=== PATIENT | male | born 1945 | race Caucasian/White ===

== ENCOUNTER 2018-07-08 11:39 | Inpatient (IN) | payer OTHER ==
[~2018-07-08] VITALS: Ht 177.8 cm; Wt 80.0 kg
--- NOTE | ~2018-07-08 | HC ---
[facility] [place] [address] [place] [address] CONSULTATION Name: TOMMY ROOT Room #: 359-P ADM IN M.R.#: [id number] Admission: 07/08/18 Attend Phys: Jim Harris MD Discharge: Date of : 43 Report #: [id number] THIS REPORT FOR: //name// CC: Anjum Harris DATE OF SERVICE: 07/10/2018 HISTORY OF PRESENT ILLNESS: The patient is a 72-year-old white male admitted with some right hand numbness and right leg numbness and weakness. He notes that the right leg weakness has resolved. He still has a little bit of right hand numbness, but the weakness has pretty much resolved as well. CTA showed a perfusion defect to left temporal area and he is noted to have some left carotid stenosis. MRI showed numerous small left cerebral hemisphere cortical area abnormal signals consistent with subacute ischemia and infarct. They were noted to be primarily in the middle cerebral artery distribution, but there were some in the posterior cerebral artery distribution on the left as well. He was seen by Vascular Surgery and with moderate 60-70% carotid stenosis. Further evaluation is underway in this regard. He does have some hypertension and he is currently allowed permissive hypertension. He has hyperlipidemia. We are seeing him in rehabilitation medicine consultation. PAST MEDICAL HISTORY: Includes a history of appendectomy. He has had a right shoulder repair and history of tobacco abuse. HABITS: Current everyday smoker, smokes cigars. No history of alcohol abuse. ALLERGIES: No known drug allergies. SOCIAL HISTORY: He lives with friends/roommates in a split level house. He did not utilize any assistive device premorbidly, drives. 7 steps in. REVIEW OF SYSTEMS: No current complaints of chest pain, shortness of breath, or abdominal discomfort. Again, he notes that the numbness has improved and the weakness has resolved. He has denied any chest pain, shortness of breath, nausea, vomiting, constipation or diarrhea. PHYSICAL EXAMINATION: GENERAL: He is a pleasant 72-year-old, bearded, white male in no obvious distress. He is alert. VITAL SIGNS: Last recorded temperature 97.6, pulse 68, respirations 18, blood pressure 124/80. HEENT: Appears to be benign. NEUROMUSCULOSKELETAL: Cranial nerves grossly intact. Facies are symmetric. Functional range of motion of both upper extremities with strength grade 4+/5, DTRs are 1. Lower extremity reveals full strength without focal weakness. [facility] [address] [place] [address] CONSULTATION Name: TOMMY ROOT Room #: 359-P [facility] IN M.R.#: [id number] Admission: 07/08/18 Attend Phys: Jim Harris MD Discharge: Date of : 44 Report #: [id number] is intact. He might have some slight residual weakness of the right upper extremity. He does quite well with sit to stand transfers. He appears to have good balance with short distance ambulation. Occupational Therapy has evaluated him and does not feel that he warrants any further occupational therapy and they did give him TheraBand. ASSESSMENT: A 72-year-old white male with the following problem list: 1. 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 2. Left carotid stenosis. 3. Previous weakness of the right upper and right lower extremity with resolution of the right lower extremity weakness and only slight residual weakness of the right upper extremity. 4. Hypertension. PLAN: He has already been discharged from Occupational Therapy and they gave him a TheraBand to work on strengthening exercises. He appears to have good standing balance and excellent lower extremity strength. Physical therapy is to evaluate. He appears too high level to warrant an acute in-hospital inpatient rehabilitation stay. We would anticipate that he should be able to return directly home as he further medically stabilizes. Occupational therapy is currently in the process of giving him a home exercise program. Thank you for asking us to assist in this patient's care. By: [id number] Mohinder Guerrero MD /nt
[2018-07-08 11:42] VITALS: BP 143/92
[2018-07-08 12:41] LABS: HEMATOCRIT 45.4 % (42.0-52.0); HEMOGLOBIN 15.8 gm/dL (14.0-18.0); MCH 30.9 pg (26.0-34.0); MCHC 34.7 g/dL (28.0-37.0); MCV 89.1 fL (80.0-100.0); RBC 5.1 mil/uL (4.50-6.00); RDW 13.2 % (10.5-14.5); WBC 5.7 thou/uL (4.0-11.0)
[2018-07-08 12:46] LABS: ANION GAP 8 mmol/L (7-16); BUN 21 mg/dL (7-18); CALCIUM 9.3 mg/dL (8.5-10.1); CHLORIDE 104 mmol/L (98-107); CO2 27 mmol/L (21-32); CREATININE 1.2 mg/dL (0.7-1.3); GLUCOSE 99 mg/dL (74-106); SODIUM 139 mmol/L (136-145)
[2018-07-08 12:55] LABS: ALBUMIN 3.8 g/dL (3.4-5.0); SGOT 17 U/L (15-37); SGPT 34 U/L (30-65); TOTAL BILIRUBIN 0.5 mg/dL (<0.1-1.0); TOTAL PROTEIN 7.1 g/dL (6.4-8.2); TROPONIN-I <0.06 ng/mL (<0.06)
[2018-07-08 13:41] LABS: CHOLESTEROL 199 mg/dL (<200); HDL CHOLESTEROL 41 mg/dL (>40); LDL CHOLESTEROL 132 mg/dL (<100); TC:HDL 4.9 Ratio (Not establshd); TRIGLYCERIDE 131 mg/dL (<150); VLDL 26 mg/dL (<40)
[2018-07-08 13:45] LABS: SERUM ASSESSMENT Clear
[2018-07-08 14:06] LABS: TSH 1.584 uIU/mL (0.358-3.740)
[2018-07-08 14:14] VITALS: BP 168/86
--- NOTE | 2018-07-08 14:36 | NUR ---
HANDOFF FAXED; THIS RN FOUND ROOM ASSIGNMENT ON WARRANT CLERK DESK AT 1167
[2018-07-08 14:42] VITALS: BP 133/74
--- NOTE | 2018-07-08 15:16 | NUR ---
ECHO FINISHED; PT TO ROOM NOW
[2018-07-08 17:56] VITALS: BP 140/84
[2018-07-08 20:00] VITALS: BP 128/72
--- NOTE | 2018-07-08 20:29 | NUR ---
Assumed care of pt at 1900. Pt alert and oriented x4. No c/o pain. IVF started and hs meds administered. Pt will be transferred to , room 359. Will give report to Miky LA.
--- NOTE | 2018-07-08 23:33 | NUR ---
NURSE ASSUMED CARE OF PATIENT AT APPROXIMATELY 2130 THIS SHIFT. PATIENT WAS TRANSFERRED FROM WITHOUT INCIDENT. NURSE TO PROVIDE FREQUENT ASSESSMENT.
[2018-07-08 23:45] VITALS: BP 127/79
[2018-07-09 03:35] VITALS: BP 118/57
[2018-07-09 05:32] LABS: HEMATOCRIT 40.6 % (42.0-52.0); HEMOGLOBIN 14.1 gm/dL (14.0-18.0); MCH 30.3 pg (26.0-34.0); MCHC 34.8 g/dL (28.0-37.0); MCV 87.1 fL (80.0-100.0); RBC 4.65 mil/uL (4.50-6.00); RDW 12.8 % (10.5-14.5); WBC 5.7 thou/uL (4.0-11.0)
[2018-07-09 05:47] LABS: CALCIUM 8.6 mg/dL (8.5-10.1); CREATININE 1.2 mg/dL (0.7-1.3); MAGNESIUM 2.1 mg/dL (1.8-2.4); POTASSIUM 4.1 mmol/L (3.5-5.1)
--- NOTE | 2018-07-09 06:10 | NUR ---
PATIENT IS PROGRESSING IN HIS CARE PLAN. VITAL SIGNS STABLE WITH PATIENT HAVING NO COMPLAINTS OF PAIN OR NAUSEA. FULLY ORIENTED, PATIENT WAS ABLE TO CALL APPROPRIATELY AND PARTICIPATE IN CARE. SLIGHT NUMBNESS REPORTED IN RIGHT ARM WITH NO REPORTS OF NUMBNESS TO LEGS. UP MULTIPLE TIMES TO BATHROOM WITH STANDBY ASSISTANCE INCIDENT FREE. PATIENT IS ANXIOUS TO GET MRI AND DISCHARGE SOON POSSIBLE. CONTINUE PLAN OF CARE.
[2018-07-09 08:19] VITALS: BP 145/98
--- NOTE | 2018-07-09 11:27 | 2DMMODE ---
[facility] [address] [place] [address] 2 D/M-MODE ECHOCARDIOGRAM Name: TOMMY ROOT Room #: 359-P ADM IN M.R.#: [id number] Admission: 07/08/18 Attend Phys: Jim Harris, Discharge: Date of : 43 Date of Service: 07/09/18 1127 Report #: [id number] THIS REPORT FOR: //name// APPROVED REPORT Study performed: 07/08/2018 14:44:55 EXAM: Comprehensive 2D, Doppler, and color-flow Echocardiogram Patient Location: In-Patient Room #: ER 7 Status: routine BSA: 1.97 HR: 67 bpm BP: 143/92 mmHg Other Information Study Quality: Good Indications CVA/TIA HTN, HLD, smoker 2D Dimensions IVSd: 13.02 (7-11mm) LVOT Diam: 22.31 (18-24mm) LVDd: 46.06 mm PWd: 10.00 (7-11mm) Ascending Ao: 26.72 (22-36mm) LVDs: 26.01 (25-40mm) Left Atrium: 33.58 (27-40mm) Aortic Root: 29.83 mm IVC: 18.00 mm Aortic Valve AoV Peak Guille.: 1.14 m/s AO Peak Gr.: 5.51 mmHg LVOT Max P.23 mmHg LVOT Max V: 1.03 m/s QUINN Vmax: 3.52 cm2 Mitral Valve E/A Ratio: 0.9 MV Decel. Time: 218.61 ms MV E Max Guille.: 0.71 m/s MV A Guille.: 0.77 m/s MV PHT: 63.40 ms Pulmonary Valve PV Peak Guille.: 1.15 m/s PV Peak Gr.: 5.32 mmHg [facility] [place] [address] [place] [address] 2 D/M-MODE ECHOCARDIOGRAM Name: IVETTTOMMY Room #: 359-P ADM IN M.R.#: [id number] Admission: 07/08/18 Attend Phys: Jim Harris, Discharge: Date of : 43 Date of Service: 07/09/18 1127 Report #: [id number] Pulmonary Vein P Vein S: 0.59 m/s P Vein A: 0.35 m/s P Vein D: 0.38 m/s P Vein A Dur.: 117.6 msec P Vein S/D Ratio: 1.55 Tricuspid Valve TR Peak Guille.: 2.67 m/s RAP Estimate: 3.00 mmHg TR Peak Gr.: 28.48 mmHg PA Pressure: 31.00 mmHg Left Ventricle The left ventricle is normal size. There is normal LV segmental wall motion. Mild concentric left ventricular hypertrophy. The left ventricular systolic function is normal. The left ventricular ejection fraction is within the normal range. LVEF is 55%. Grade I - abnormal relaxation pattern. Right Ventricle The right ventricle is normal size. There is normal right ventricular wall thickness. The right ventricular systolic function is normal. Atria The left atrium size is normal. The right atrium size is normal. Aortic Valve The aortic valve is mildly thickened. No aortic regurgitation is present. There is no aortic valvular stenosis. Mitral Valve Mitral valve leaflets are thickened. Trace mitral regurgitation. No evidence of mitral valve stenosis. There is no evidence of mitral valve prolapse. Tricuspid Valve The tricuspid valve is normal in structure. There is no tricuspid valve stenosis. Trace tricuspid regurgitation with an estimated PAP of 31 mmHg. Pulmonic Valve The pulmonary valve is normal in structure. Moderate pulmonic regurgitation. [facility] [address] [address] 2 D/M-MODE ECHOCARDIOGRAM Name: TOMMY ROOT Room #: 359-P ADM IN M.R.#: [id number] Admission: 07/08/18 Attend Phys: Jim Harris, Discharge: Date of : 43 Date of Service: 07/09/18 1127 Report #: [id number] The aortic root is normal in size. IVC is normal in size and collapses >50% with inspiration. Pericardium There is no pericardial effusion. <Conclusion> The left ventricle is normal size. Mild concentric left ventricular hypertrophy. The left ventricular systolic function is normal. Grade I - abnormal relaxation pattern. The right ventricle is normal size. The left atrium size is normal. The aortic valve is mildly thickened. Trace mitral regurgitation. Trace tricuspid regurgitation with an estimated PAP of 31 mmHg. <ELECTRONICALLY SIGNED> By: Giovany Ivory MD 07/09/181126 26 26 Giovany Ivory MD /INF
[2018-07-09 11:33] VITALS: BP 135/91
[2018-07-09 15:02] VITALS: BP 123/78
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
[2018-07-09 19:20] VITALS: BP 118/80
[2018-07-09 23:15] VITALS: BP 123/79
[2018-07-10 03:10] VITALS: BP 120/71
--- NOTE | 2018-07-10 03:34 | NUR ---
PATIENT IS PROGRESSING RAPIDLY IN HIS CARE PLAN. VITAL SIGNS STABLE WITH PATIENT HAVING NO COMPLAINTS OF PAIN OR NAUSEA. FULLY ORIENTED, PATIENT IS ABLE TO PARTICIPATE IN CARE AND CALL APPROPRIATELY FOR NEEDS. NURSE SPENT TIME EDUCATING PATIENT ON IMPORTANCE OF MEDICATION AND LIFESTYLE CHANGE DUE TO DIAGNOSIS. PATIENT REPORTS SLIGHT NUMBNESS IN ARM, UNCHANGED FROM YESTERDAY. PATIENT HAS BEEN UP FREQUENTLY WITH STRONG, STEADY GAIT. NURSE WAS CONTACTED BY DR. RIVERA OVER SHIFT AND WAS ORDERED TO RE START FLUIDS DUE TO LOWER THAN IDEAL BLOOD PRESSURE. NURSE IS ALSO TO CONTACT RADIOLIGIST AND SEE IF THERE IS ANY CONTRAINDICATION TO PATIENTS SCHEDULED MRI, AND IF ALRIGHT, TO REQUEST MRI FIRST THING THIS MORNING. PATIENT IS ANXIOUS FOR POSSIBLE DISCHARGE TODAY. CONTINUE PLAN OF CARE.
[2018-07-10 05:31] LABS: HEMATOCRIT 42.6 % (42.0-52.0); HEMOGLOBIN 14.4 gm/dL (14.0-18.0); MCHC 33.7 g/dL (28.0-37.0); MCV 89.1 fL (80.0-100.0); RBC 4.79 mil/uL (4.50-6.00); RDW 12.8 % (10.5-14.5)
[2018-07-10 05:39] LABS: CALCIUM 8.8 mg/dL (8.5-10.1); CREATININE 1.2 mg/dL (0.7-1.3); MAGNESIUM 2.1 mg/dL (1.8-2.4); POTASSIUM 4.2 mmol/L (3.5-5.1)
[2018-07-10 06:00] VITALS: BP 131/87
--- NOTE | 2018-07-10 06:38 | NUR ---
NURSE HAS RECEIVED WORD FROM SHREYA IN RADIOLOGY THAT HE HAS SPOKEN TO DR. JENSEN PERSONALLY AND THE DOCTOR WHO HAS STATED THAT THERE IS NO CONTRAINDICATION FOR PATIENT RECEIVING MRI THIS MORNING. NURSE ALSO STRESSED THE IMPORTANCE OF PATIENT GOING FIRST THING THIS MORNING. FULL REPORT WILL BE GIVEN TO NURSE TAKING OVER CARE.
[2018-07-10 08:46] VITALS: BP 148/83
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
[2018-07-10 12:33] VITALS: BP 124/80
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
--- NOTE | 2018-07-10 14:46 | NUR ---
PATIENT WILL BE SPENDING ANOTHER NIGHT IN THE HOSPITAL FOR POSSIBLE SURGERY. NOT SURE YET UNTIL HE SPEAKS WITH SURGEON. HE IS IN GOOD SPIRITS. UP AD TIRSO. FLUIDS RUNNING. RESP. NON LABORED. WILL CONT WITH PLAN OF CARE.
[2018-07-10 17:01] LABS: APTT 28.9 Seconds (24.5-32.8); PROTIME 10.9 Seconds (9.3-11.4)
[2018-07-10 17:11] VITALS: BP 152/82
[2018-07-10 20:50] VITALS: BP 133/80
[2018-07-11 03:05] VITALS: BP 134/84
[2018-07-11 04:05] VITALS: BP 149/76
[2018-07-11 06:18] LABS: HEMATOCRIT 41.8 % (42.0-52.0); HEMOGLOBIN 14.5 gm/dL (14.0-18.0); MCH 30.8 pg (26.0-34.0); MCHC 34.6 g/dL (28.0-37.0); RBC 4.7 mil/uL (4.50-6.00); WBC 6.1 thou/uL (4.0-11.0)
[2018-07-11 06:39] LABS: CREATININE 1.2 mg/dL (0.7-1.3)
[2018-07-11 07:14] VITALS: BP 144/86
--- NOTE | 2018-07-11 08:48 | EKG ---
[place] [address] [facility] [place] [address] ELECTROCARDIOGRAM REPORT Name: TOMMY ROOT Room #: 359-P ADM IN M.R.#: [id number] Admission: 07/08/18 Attend Phys: Jim Harris MD Discharge: Date of : 43 Report #: [id number] THIS REPORT FOR: //name// [facility] Test Date: 2018-07-11 Test Time: 07:39:51 Pat Name: TOMMY ROOT Department: Room: 359 P Gender: M Resolution Specialist: ASHLEY : 1945 Requested By: Dane Hawkins Order Number: [id number] MD: Alfredo Schuster Measurements Intervals [place] Rate: 60 P: 38 ME: 152 QRS: -42 QRSD: 106 T: 52 QT: 409 QTc: 409 Interpretive Statements Sinus rhythm Left anterior fascicular block Abnormal R-wave progression, early transition No previous ECG available for comparison Electronically Signed On 07-11-2018 8:48:00 CHEMISTRY QUALITY CONTROL ANALYST by Alfredo Schuster [email or web address] <ELECTRONICALLY SIGNED> By: Alfredo Schuster MD, [facility] 07/11/18 0848 0739 8 Alfredo Schuster MD, FACC /EPI
[2018-07-11 10:48] LABS: URINE BILIRUBIN NEGATIVE (Negative); URINE BLOOD NEGATIVE (Negative); URINE CLARITY CLEAR; URINE COLOR YELLOW; URINE GLUCOSE-RANDOM* NEGATIVE (Negative); URINE KETONES NEGATIVE (Negative); URINE LEUKOCYTES-REFLEX NEGATIVE (Negative); URINE NITRITE-REFLEX NEGATIVE (Negative); URINE PROTEIN (DIPSTICK) NEGATIVE (Negative); URINE SPECIFIC GRAVITY 1.025 (1.005-1.035); URINE UROBILINOGEN 0.2 E.U./dl (0.2-1.0)
[2018-07-11 11:18] VITALS: BP 134/91
[2018-07-11 15:53] VITALS: BP 139/85
--- NOTE | 2018-07-11 15:55 | NUR ---
on-going assessment: PATIENT IS BEING SCHEDULED TO HAVE A CARTOID ENDARTECTOMY 07/13/18 AT NOON. CM WILL CONTINUE TO FOLLOW TO ASSIST NEEDED.
[2018-07-11 19:30] VITALS: BP 123/76
--- NOTE | 2018-07-11 19:57 | NUR ---
Assumed care of patient at 0700. Vitals have been stable. Denies pain. Alert and oriented x4, pleasant. Reports some mild right arm numbness, intermittently. States feels that fingers are not as coordinated as before, but he has been doing exercises and practicing his writing and his signature. Otherwise, denies any symptoms. Patient is agreeable for surgery on , 07/13, for endarterectomy. Pre-op orders were placed; UA and MRSA collected and sent to lab. No changes to Lovenox or Aspirin, per Dr. Hawkins. Up ad lilibeth in room, steady gait. Progressing towards POC. Will continue to monitor.
[2018-07-12 03:42] VITALS: BP 121/74
--- NOTE | 2018-07-12 04:10 | NUR ---
Pt. stated he slept well during the night. Denies any pain. No shortness of breath. Up ad lilibeth in room with steady gait. Waiting for surgery tomorrow. SB when sound asleep then SR while awake. Will continue to monitor.
[2018-07-12 05:24] LABS: HEMATOCRIT 42.6 % (42.0-52.0); HEMOGLOBIN 14.4 gm/dL (14.0-18.0); MCV 88.2 fL (80.0-100.0); RBC 4.82 mil/uL (4.50-6.00); RDW 12.7 % (10.5-14.5); WBC 5.5 thou/uL (4.0-11.0)
[2018-07-12 05:36] LABS: CALCIUM 8.9 mg/dL (8.5-10.1); CREATININE 1.3 mg/dL (0.7-1.3); POTASSIUM 4.2 mmol/L (3.5-5.1)
[2018-07-12 07:34] VITALS: BP 129/84
[2018-07-12 11:32] VITALS: BP 125/83
[2018-07-12 16:20] VITALS: BP 126/81
--- NOTE | 2018-07-12 17:17 | NUR ---
assumed patient care at 0700. a/o x4. up ad lilibeth. right arm numbness. will npo after midnight to have carotid endarterctomy tomorrow. keep monitor.
[2018-07-12 19:20] VITALS: BP 128/79
--- NOTE | 2018-07-12 22:19 | NUR ---
CARE TRANSFERRED TO RN BONNIE AT 2200.
[2018-07-13] VITALS (12 sets, daily range): BP systolic 87–129; BP diastolic 41–86
[2018-07-13 05:08] LABS: HEMATOCRIT 42.9 % (42.0-52.0); HEMOGLOBIN 14.8 gm/dL (14.0-18.0); MCH 30.9 pg (26.0-34.0); MCHC 34.5 g/dL (28.0-37.0); MCV 89.4 fL (80.0-100.0); RBC 4.8 mil/uL (4.50-6.00); RDW 12.8 % (10.5-14.5); WBC 6.6 thou/uL (4.0-11.0)
[2018-07-13 05:25] LABS: CALCIUM 9.2 mg/dL (8.5-10.1); CREATININE 1.3 mg/dL (0.7-1.3); MAGNESIUM 2.1 mg/dL (1.8-2.4); POTASSIUM 4.4 mmol/L (3.5-5.1)
--- NOTE | 2018-07-13 07:54 | NUR ---
PT MAKING PROGRESS TOWARDS GOALS. SLEPT OVERNIGHT, SHOWERED THIS AM. SENIOR LEAD PROJECT MANAGER ASSISTED PT WITH HIBICLENS SCRUB THIS AM.
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
--- NOTE | 2018-07-13 12:16 | NUR ---
ON-GOING ASSESSMENT: CM REVIEWED CHART. PATIENT IS TO HAVE CAROTID ENDARTECTOMY TODAY. CM WILL CONTINUE TO FOLLOW TO ASSIST NEEDED.
--- NOTE | 2018-07-13 18:34 | NUR ---
PATIENT TRANSFERRED FROM RECOVERY, POST LEFT CAROTID ENDARTERECTOMY. SINUS RHYTHM ON ENGRAVER. ON ROOM AIR, NO SIGNS OF SHORTNESS OF BREATH. TOLERATING CLEAR LIQUID DIET. CARTWRIGHT PATENT AND DRAINING. RIGHT ARTERIAL LINE INTACT. BLOOD SUGAR MONITORED. PATIENT UP WITH STANDBY ASSISTANCE, WALKED HALLWAY X1. LEFT DRESSING SITE INTACT, DRAIN PRESENT UNDER GUAZE. DR. SARMIENTO AWARE AND STATED DRAIN WILL BE REMOVED IN THE AM PER PHYSICIAN. SUPPLIES PRESENT AT THE BEDSIDE FOR PROCEDURE. FAMILY AND PATIENT UPDATED ON THE PLAN OF CARE. NO SIGNS OF ACUTE DISTRESS NOTED AT THIS TIME. WILL CONTINUE TO MONITOR.
[2018-07-14] VITALS (15 sets, daily range): BP systolic 87–111; BP diastolic 46–62
[2018-07-14 05:02] LABS: HEMATOCRIT 35.3 % (42.0-52.0); HEMOGLOBIN 12.3 gm/dL (14.0-18.0); MCH 30.8 pg (26.0-34.0); MCHC 34.8 g/dL (28.0-37.0); MCV 88.5 fL (80.0-100.0); RBC 3.99 mil/uL (4.50-6.00); RDW 12.9 % (10.5-14.5); WBC 10.4 thou/uL (4.0-11.0)
[2018-07-14 05:10] LABS: CALCIUM 8.2 mg/dL (8.5-10.1); CREATININE 1.2 mg/dL (0.7-1.3); POTASSIUM 4.2 mmol/L (3.5-5.1)
--- NOTE | 2018-07-14 05:35 | NUR ---
ASSUMED CARE OF PT AT 1900. PT DENIES ANY PAIN OR NUMBNESS. LEFT CAROTID DRESSING HAD LARGE AMOUNT OF SEROSANGUINEOUS DRAINAGE LAST NIGHT, SOME GUAZE CHANGED AND REINFORCED WITH TEGADERM. DRAINAGE HAS ACCUMULATED OVERNIGHT, BUT PT REQUESTED TO LEAVE IT BE UNTIL DR. SARMIENTO COMES IN TO TAKE OUT THE SUTURES. WHEN SLEEPING, PT'S O2 WOULD DESAT DOWN TO ABOUT 88% AT TIMES, SO 1L O2 NC APPLIED AND PT HAD NO FURTHER RESPIRATORY ISSUES. PT REPORTS BEING TOLD THAT HE HAS SLEEP APNEA AND HE HAS CPAP AT HOME, BUT DOES NOT WEAR IT. PT IS NOW SITTING UP IN BED AND IS IN NO DISTRESS. ASSESSMENTS AND VITALS DOCUMENTED. WILL CONTINUE TO MONITOR.
[2018-07-14] MEDS ORDERED: ASA5UEC PO (08:43)
[2018-07-14] MEDS ORDERED: ATORVASTATIN CA40 MG PO (08:43)
--- NOTE | 2018-07-14 12:03 | NUR ---
PATIENT ALERT AND ORIENED X4, ON ROOM AIR. UP INDEPENDENTLY, PATIENT WALKED HALLWAY WITH STANDBY ASSISTANCE. FAMILY AND PATIENT EDUCATED ON WOUND CARE TO LEFT CAROTID, IV'S REMOVED, CARTWRIGHT DISCONINUED AND PATIENT VOIDED. DISCHARGE INSTRUCTIONS GIVEN, PRESCRIPTIONS DISCUSSED. NO SIGNS OF ACUTE DISTRESS NOTED AT THIS TIME, PATIENT TRANSPORTED TO FAMILY'S VEHICLE.
--- NOTE | 2018-07-14 15:46 | NUR ---
PLANS FOR DC HOME TODAY WITH HOME HEALTH RN/PT/OT. PT AGREEABLE TO [facility] AND CONFIRMED WITH INTAKE THEY CAN ACCEPT AND START CARE TOMORROW 07/15/18. PT HAS TRANSPORTATION HOME. RN UPDATED.
--- NOTE | 2018-07-15 11:51 | O ---
[facility] [place] [address] [place] [address] OPERATIVE REPORT Name: TOMMY ROOT Room #: 238-P DIS IN M.R.#: [id number] Admission: 07/08/18 Attend Phys: Jim Harris MD Discharge: 07/14/18 Date of : 43 Report #: [id number] THIS REPORT FOR: //name// CC: Anjum Harris DATE OF SERVICE: 07/13/2018 PREOPERATIVE DIAGNOSIS: Left carotid artery stenosis. POSTOPERATIVE DIAGNOSIS: Left carotid artery stenosis. PROCEDURE: Left carotid endarterectomy with patch closure. SURGEON: Dane Hawkins M.D. CANDLE CUTTER: VESTA Slater. ANESTHESIA: General. INDICATION: The patient is a 72-year-old who presented to the hospital with acute neurologic event. CT angiogram revealed a shaggy carotid lesion that I believe was hemodynamically significant, certainly greater than 50%. MRI showed evidence of left-sided embolic phenomena. FINDINGS AND TECHNIQUE: After general anesthesia was established, oblique left neck incision was made. Common facial vein was divided. Common internal and external carotid arteries were identified and controlled. 10,000 units of heparin were given. Continuous electroencephalographic monitoring was performed during the operation when the carotid vessels were occluded. No important EEG changes were noted. The arteriotomy was made. The endarterectomy was performed without creating a distal flap. Neointima was inspected and all loose debris was removed. Tacking sutures were placed at the transition zone. It should be noted that the carotid plaque extended quite high into the internal carotid. When the endarterectomy was deemed satisfactory, the arteriotomy was closed with running Prolene and thin walled pericardial patch. Prior to finishing the closure, the carotid vessels were backbled and the artery was irrigated with heparinized saline. Flow was established first through the external, then the internal carotid artery. [facility] [address] [place] [address] OPERATIVE REPORT Name: TOMMY ROOT Room #: 238-P DIS IN M.R.#: [id number] Admission: 07/08/18 Attend Phys: Jim Harris MD Discharge: 07/14/18 Date of : 43 Report #: [id number] When hemostasis was felt to be satisfactory, drain was brought out through the bottom pole of the incision, and the wound was closed in layers with interrupted Vicryl for the platysma and running Monocryl for the subcuticular layer. The patient tolerated the procedure well and was taken to the recovery area where his neurologic progress was monitored. All counts reported as correct. <ELECTRONICALLY SIGNED> By: Dane Hawkins MD 07/15/18 1151 1215 1251 Dane Hawkins MD /nt
--- NOTE | 2018-07-17 13:12 | PATH ---
[facility] [address] [place] [address] PATHOLOGY RPT PROCEDURE Name: RICKEY ROOT Room #: 238-P DIS IN M.R.#: [id number] Admission: 07/08/18 Date of : 43 Discharge: 07/14/18 Report #: [id number] Path Case #: [id number] [facility] Accession Number: [id number] . 01 Material submitted: . LEFT CAROTID PLAQUE . 01 Clinical history: . Left carotid stenosis . 02 Diagnosis: Vessel wall, "left carotid plaque": - Calcified and atherosclerotic plaque. . (SHA:mml; 07/17/2018) QLM/07/17/2018 . 02 Electronically signed: . Reginald Lawrence MD, Pathologist NPI- [id number] . 01 Gross description: . The specimen is received in formalin, labeled "Rickey Root, left carotid plaque". Received is a tubular segment of partially calcified rubbery material measuring 1.1 x 1.0 x 1.0 cm in greatest dimensions. The specimen is submitted representatively in cassette A1, following light decalcification. (CAA; 07/14/2018) QAC/QAC . 02 Pathologist provided ICD-10: I65.22 . 02 CPT . 762232, 558921 Specimen Comment: A courtesy copy of this report has been sent to Specimen Comment: [phone], , . Specimen Comment: Report sent to ,DR DORADO / DR ALARCON Performed at: [address], [place], [place] [id number] MD Juan Pablo Rodriguez MD Phone: [phone] Performed at: [address] [id number] MD Kira Cota MD Phone: [phone]
== END 2018-07-14 12:15 | disposition home health service (06) | DRG 37 ==
LOC: ER 11:39 → 3W 14:11 → EROBS 14:11 → 3W 15:18 → 4E 17:38 → 3W 21:46 → ICU 07-13 14:12
PROVIDERS: Emergency Medicine; Nurse Practitioner Family; Surgery Vascular Surgery; ADMIT Internal Medicine
DX: I65.22 Occlusion and stenosis of left carotid artery (principal); I63.9 Cerebral infarction, unspecified; G81.94 Hemiplegia, unspecified affecting left nondominant side; I10 Essential (primary) hypertension; E78.00 Pure hypercholesterolemia, unspecified; K59.00 Constipation, unspecified; E53.8 Deficiency of other specified B group vitamins; F17.210 Nicotine dependence, cigarettes, uncomplicated; Z87.828 Personal history of other (healed) physical injury and trauma; Z90.49 Acquired absence of other specified parts of digestive tract; Z98.42 Cataract extraction status, left eye; Z98.41 Cataract extraction status, right eye; Z79.899 Other long term (current) drug therapy; Z80.49 Family history of malignant neoplasm of other genital organs; Z80.8 Family history of malignant neoplasm of other organs or systems; Z91.14 Patient's other noncompliance with medication regimen; Z23 Encounter for immunization
CPT/HCPCS: 10078; 10879; 47375; 50010; 50101; 50386; 50417; 50455; 51301; 51751; 52279; 54118; 56524; 56526; 56531; 56534; 62110; 62900; 65040; 65131; 70005

== ENCOUNTER 2020-07-05 15:24 | Emergency (ER) | payer OTHER ==
[~2020-07-05] VITALS: Ht 177.8 cm; Wt 72.1 kg
[~2020-07-05 15:24] MED LIST: ASA5UEC PO; ATORVASTATIN CA40 MG PO
[2020-07-05] MEDS ORDERED: LIPITOR 20 MG T20 M1 PO (15:31)
[2020-07-05 16:27] LABS: ABSOLUTE NEUTROPHILS 4.1 thou/uL (1.4-8.2); BASOPHILS 0.8 % (0.0-2.0); EOSINOPHILS 3.6 % (0.0-3.0); HEMATOCRIT 44.3 % (42.0-52.0); HEMOGLOBIN 14.9 gm/dL (14.0-18.0); LYMPHOCYTES 20.1 % (24.0-44.0); MCH 30.5 pg (26.0-34.0); MCHC 33.7 g/dL (28.0-37.0); MCV 90.4 fL (80.0-100.0); PLATELET COUNT 315 thou/uL (150-400); POLYS 64.5 % (36.0-66.0); RBC 4.89 mil/uL (4.50-6.00); RDW 13.2 % (10.5-14.5); WBC 6.4 thou/uL (4.0-11.0)
[2020-07-05 16:37] LABS: URINE BILIRUBIN NEGATIVE (Negative); URINE BLOOD NEGATIVE (Negative); URINE CLARITY CLEAR; URINE COLOR YELLOW; URINE GLUCOSE-RANDOM* NEGATIVE (Negative); URINE KETONES NEGATIVE (Negative); URINE LEUKOCYTES-REFLEX NEGATIVE (Negative); URINE NITRITE-REFLEX NEGATIVE (Negative); URINE PROTEIN (DIPSTICK) NEGATIVE (Negative); URINE UROBILINOGEN 0.2 E.U./dl (0.2-1.0)
[2020-07-05 16:40] LABS: ANION GAP 7 mmol/L (7-16); BUN 19 mg/dL (7-18); CALCIUM 8.7 mg/dL (8.5-10.1); CHLORIDE 104 mmol/L (98-107); CO2 27 mmol/L (21-32); CREATININE 1.2 mg/dL (0.7-1.3); GLUCOSE 92 mg/dL (74-106); POTASSIUM 3.9 mmol/L (3.5-5.1); SODIUM 138 mmol/L (136-145)
[2020-07-05 16:45] LABS: ALBUMIN 3.9 g/dL (3.4-5.0); SGOT 13 U/L (15-37); SGPT 28 U/L (16-63); TOTAL BILIRUBIN 0.4 mg/dL (0.2-1.0); TROPONIN-I <0.06 ng/mL (<0.06)
[2020-07-05] MEDS ORDERED: MECLIZINE HCL25 M1 PO (18:00)
[2020-07-05 18:17] VITALS: BP 161/92
--- NOTE | 2020-07-07 07:24 | EKG ---
[facility] [address] [place] [address] ELECTROCARDIOGRAM REPORT Name: TOMMY ROOT Room #: DEP LIO Silvestre#: [id number] Admission: 07/05/20 Attend Phys: Discharge: 07/05/20 Date of : 43 Report #: [id number] [facility] ED Test Date: 2020-07-05 Test Time: 15:39:24 Pat Name: TOMMY ROOT Department: Room: Gender: M Buyer Renter: OSCAR : 1945 Requested By: Cesar Ng Order Number: [id number] MD: Preet Gordon Measurements Intervals [place] Rate: 70 P: 45 WA: 149 QRS: -62 QRSD: 142 T: 31 QT: 412 QTc: 445 Interpretive Statements Sinus rhythm RBBB and LAFB Compared to ECG 07/11/2018 07:39:51 Right bundle-branch block now present Electronically Signed On 07-07-2020 7:24:50 CALL OR CONTACT CENTRE OPERATOR by Preet Gordon [email or web address] <ELECTRONICALLY SIGNED> By: Preet Gordon MD, [facility] 07/07/20 0724 1539 1539 Preet Gordon MD, FACC /EPI
== END 2020-07-05 18:20 | disposition home or self-care (01) ==
LOC: ER 15:24
PROVIDERS: Physician Assistant
DX: R42 Dizziness and giddiness (principal); F17.210 Nicotine dependence, cigarettes, uncomplicated; Z90.49 Acquired absence of other specified parts of digestive tract; Z79.82 Long term (current) use of aspirin; Z79.899 Other long term (current) drug therapy